=== PATIENT | female | born 1990 | race Caucasian/White ===

== ENCOUNTER 2021-08-21 14:37 | Emergency (ER) | payer BC ==
[2021-08-21 16:12] LABS: Bilirubin Neg (Negative); Blood, Urine 10 (Negative); Clarity Clear (Clear); Glucose, Urine (Dipstick) Normal (Negative); Ketone, Urine Negative (Negative); Leukocyte 25 (Negative); Nitrite Negative (Negative); Protein, Urine (Dipstick) Negative (Neg-Trace); Specific Gravity, Urine 1.015 (1.002-1.036); Urobilinogen Normal mg/dL (Less than 2)
[2021-08-21 16:57] LABS: Bacteria/HPF 2+ HPF (None Seen); Mucous/LPF 2+ LPF (<2+)
[2021-08-21] MEDS ORDERED: cefTRIAXone\\ROCEPHIN 1 GM VIAL ONE (18:10)
[2021-08-21] MEDS ORDERED: Lidocaine 1% (PF) 30 ML VIAL ONE (18:10)
== END 2021-08-21 19:18 | disposition home or self-care (01) ==
LOC: CSHERS 14:37
DX: O23.12 Infections of bladder in pregnancy, second trimester (principal); N30.01 Acute cystitis with hematuria; Z3A.14 14 weeks gestation of pregnancy
CPT/HCPCS: 81003; 81015; 87086; 96372; 99284; J0696; J2001